=== PATIENT | male | born 1945 | race Two or more races ===

== ENCOUNTER 2018-07-10 15:38 | Inpatient (IN) | payer MEDICARE, OTHER ==
[~2018-07-10] VITALS: Ht 175.3 cm; Wt 71.2 kg
[2018-07-10] MEDS ORDERED: ALBU18HF2 IH (15:58)
[2018-07-10] MEDS ORDERED: HYDR25CA26 PO (15:58)
[2018-07-10] MEDS ORDERED: CITA10TA17 PO (15:58)
[2018-07-10] MEDS ORDERED: DOCU-141 PO (15:58)
[2018-07-10] MEDS ORDERED: BISA10SU8 RC (15:58)
[2018-07-10] MEDS ORDERED: OXYC5CAP18 PO (15:58)
[2018-07-10] MEDS ORDERED: IPRA3AMP23 IH (15:58)
[2018-07-10] MEDS ORDERED: HYDR28.32 TP (15:58)
[2018-07-10] MEDS ORDERED: BENZ1LOZ58 MM (15:58)
[2018-07-10] MEDS ORDERED: LOPE2CAP PO (15:58)
[2018-07-10] MEDS ORDERED: BISA5TAB10 PO (15:58)
[2018-07-10] MEDS ORDERED: ACET-868 PO (15:58)
[2018-07-10] MEDS ORDERED: ONDA4TAB5 PO (15:58)
[2018-07-10] MEDS ORDERED: LORA0.5T PO (15:58)
--- NOTE | 2018-07-10 16:00 | NUR ---
BIB PRIVATE EMT FROM [facility], ON & OFF LOWER ABDOMINAL PAIN. PT AAOX3, VSS. DENIES CP, SOB, DIZZINESS, ABD PAIN, N/V @ THIS TIME. NAD NOTED @ THIS TIME. AWAITING EVAL.
[2018-07-10 16:18] LABS: BASOPHILS % (AUTO) 0.8 % (0.0-2.0); EOSINOPHILS % (AUTO) 1.9 % (0.0-6.0); HEMATOCRIT 30 % (39-51); LYMPHOCYTES # (AUTO) 1.5 /CMM (0.8-4.8); LYMPHOCYTES % (AUTO) 33.9 % (20.0-44.0); MEAN CORPUSCULAR HEMOGLOBIN 31 PG (26.0-33.0); MEAN CORPUSCULAR HGB CONC 34 g/dl (31.0-36.0); MEAN CORPUSCULAR VOLUME 90 fL (80-96); MONOCYTES # (AUTO) 0.8 /CMM (0.1-1.30); MONOCYTES % (AUTO) 17.9 % (2.0-12.0); NEUTROPHILS % (AUTO) 45.5 % (43.0-81.0); PLATELET COUNT (AUTO) 157 /CMM (150-450); RDW COEFFICIENT OF VARIATION 13.2 (11.5-15.0); RED BLOOD CELL COUNT(AUTO) 3.28 MIL/uL (4.5-6.0); WHITE BLOOD COUNT (AUTO) 4.4 K/uL (4.3-11.0)
[2018-07-10 16:26] LABS: CALCIUM, SERUM 8.1 mg/dL (8.5-10.1); CARBON DIOXIDE 26 mmol/L (21-32); CHLORIDE 102 mmol/L (98-107); CREATININE 1.6 mg/dL (0.6-1.3); GLUCOSE 127 mg/dL (74-106); POTASSIUM 3.4 mmol/L (3.5-5.1); SODIUM SERUM 134 mmol/L (136-145); UREA NITROGEN, BLOOD 18 mg/dL (7-18)
[2018-07-10 16:30] LABS: INR 1.13 (0.85-1.15)
[2018-07-10 16:34] LABS: TROPONIN I < 0.017 ng/mL (0.00-0.056)
[2018-07-10 16:37] LABS: ALANINE AMINOTRANSFERASE 34 U/L (12-78); ALBUMIN 2.3 g/dL (3.4-5.0); ALKALINE PHOSPHATASE 184 U/L (46-116); ASPARTATE AMINOTRANSFERASE 59 U/L (15-37); BILIRUBIN,DIRECT 0.2 mg/dL (0.0-0.2); BILIRUBIN,TOTAL 0.5 mg/dL (0.2-1.0); LIPASE 611 U/L (73-393)
[2018-07-10 16:43] LABS: BAND % (MANUAL) 3 % (0.0-5.0); LYMPHOCYTES % (MANUAL) 26 % (16-48); MONOCYTES % (MANUAL) 6 % (0-11.0); NEUTROPHILS % (MANUAL) 65 (42-76)
[2018-07-10 16:49] LABS: SERUM AMMONIA 46 umol/L (11-32)
--- NOTE | 2018-07-10 18:26 | NUR ---
BED 202
[2018-07-10] MEDS ORDERED: IV NS 0.9% 1,000 ML IV PRN (18:30)
[2018-07-10] MEDS ORDERED: Z GUARD REMEDY 2 OZ OINT TP PRN (18:30)
[2018-07-10] MEDS ORDERED: MAGNESIUM HYDROXIDE 30 ML UDC PO PRN (18:30)
[2018-07-10] MEDS ORDERED: MORPHINE SULFATE INJ 2 MG/ML DISP.SYRIN IV PRN (18:30)
[2018-07-10] MEDS ORDERED: ACETAMINOPHEN 325 MG TABLET PO PRN (18:30)
[2018-07-10] MEDS ORDERED: MAG HYDROX/AL HYDROX/SIMETH 30 ML UDC PO PRN (18:30)
[2018-07-10] MEDS ORDERED: HYDROCODONE/APAP 5/325MG 1 EACH TABLET PO PRN (18:30)
[2018-07-10] MEDS ORDERED: ONDANSETRON HCL/PF 4 MG/2 ML VIAL IVP PRN (18:30)
[2018-07-10] MEDS ORDERED: LACTULOSE 10 G/15 ML UDC (PYXIS) PO ONE ×2 (18:30→21:00)
[2018-07-10] MEDS ORDERED: ZOLPIDEM TARTRATE 5 MG TABLET PO PRN (18:30)
[2018-07-10] MEDS ORDERED: MORPHINE SULFATE INJ 4 MG/ML DISP.SYRIN IV PRN (19:00)
--- NOTE | 2018-07-10 19:06 | NUR ---
PT STABLE, DENIES ABD PAIN, N/V/D, SOB, DIZZINESS, NAD NOTED @ THIS TIME.
[2018-07-10 19:15] VITALS: BP_SYST 152; BP_SYST 163; BP_DIAS 79
--- NOTE | 2018-07-10 19:15 | NUR ---
MS RN NOTES RECEIVED PT FROM ER, VIA [facility], ABLE TO WALK AN TRANSFER HIMSELF TO BED. PT IS A/O X 3, VERBALLY RESPONSIVE. NO DISTRESS, NO SOB NOTED AT THIS TIME. RESPIRATION IS EVEN AND UNLABORED. IV SITE ON RIGHT AC INTACT ANC PATENT, NO S/S OF INFILTRATION NOTED. BODY CHECK DONE. DENIES ANY PIN OR DISCOMFORT AT THIS TIME. ALL NEEDS ATTENDED AND MET. KEPT COMFORTABLE. CALL LIGHT WITHIN REACH. WILL CONT TO MONITOR.
[2018-07-10] MEDS: IV NS 0.9% 1,000 ML IV PRN (20:50)
--- NOTE | 2018-07-10 21:00 | NUR ---
PT ON NPO, SPOKE WITH KANWAL, NEWS REEL CAMERAMAN OK TO GIVE LACTULOSE MEDICATION WITH LITTLE SIPS OF WATER.
[2018-07-11] MEDS ORDERED: HYDROCORTISONE 1% CREAM 28.35 GM TUBE TP PRN (00:30)
[2018-07-11] MEDS ORDERED: ACETAMINOPHEN 325 MG TABLET PO PRN (00:30)
[2018-07-11] MEDS ORDERED: Medication Not On Formulary EA (Ondansetron Hcl (Zofran) 4 MG) PO PRN (00:30)
[2018-07-11] MEDS ORDERED: BISACODYL SUPP (10 MG) 10 MG/SUPP.RECT SUPP.RECT RC PRN (00:30)
[2018-07-11] MEDS ORDERED: Medication Not On Formulary EA (Ipratropium/Albuterol Sulfate (Duoneb 2.5-0.5 Mg/3 Ml So IH PRN (00:30)
[2018-07-11] MEDS ORDERED: LOPERAMIDE HCL (2 MG CAP) 2 MG CAPSULE PO PRN (00:30)
[2018-07-11 06:26] LABS: SERUM AMMONIA 38 umol/L (11-32)
[2018-07-11 06:28] LABS: CALCIUM, SERUM 8.3 mg/dL (8.5-10.1); CARBON DIOXIDE 25 mmol/L (21-32); CHLORIDE 106 mmol/L (98-107); CREATININE 1.4 mg/dL (0.6-1.3); GLUCOSE 86 mg/dL (74-106); PHOSPHORUS 3.3 mg/dL (2.5-4.9); POTASSIUM 3.5 mmol/L (3.5-5.1); SODIUM SERUM 139 mmol/L (136-145); UREA NITROGEN, BLOOD 15 mg/dL (7-18)
[2018-07-11 06:31] LABS: CHOLESTEROL 111 mg/dL (<200); HDL CHOLESTEROL 21 mg/dL (40-60); LDL 76 mg/dL (0-99); TRIGLYCERIDES 92 mg/dL (30-150)
--- NOTE | 2018-07-11 06:35 | NUR ---
MS RN NOTES PT IN BED, RESTING COMFORTABLY AT THIS TIME, AROUSES EASILY. A/O X 3, VERBALLY RESPONSIVE. NO DISTRESS, NO SOB NOTED AT THIS TIME. RESPIRATION IS EVEN AND UNLABORED. IV SITE ON RIGHT AC INTACT AND PATENT, NO S/S OF INFILTRATION NOTED. IVF INFUSING WELL. DENIES ANY PIN OR DISCOMFORT AT THIS TIME. PT ON NPO, VERBALIZED UNDERSTANDING REGARDING PLAN OF CARE. AMBULATORY. ALL NEEDS ATTENDED AND MET. KEPT COMFORTABLE. CALL LIGHT WITHIN REACH. WILLL ENDORSE TO NEXT SHIFT ACCORDINGLY FOR MIGUEL.
[2018-07-11] MEDS ORDERED: MENTHOL/CETYLPYRD (CEPACOL) 1 LOZ LOZENGE MM PRN (07:30)
[2018-07-11] MEDS ORDERED: IPRATROPIUM NEB FS 0.5 MG/2.5 ML AMPUL.NEB NEB PRN (07:30)
[2018-07-11] MEDS ORDERED: ALBUTEROL FS 2.5 MG/0.5 ML VIAL.NEB NEB PRN (07:30)
[2018-07-11] MEDS: PANTOPRAZOLE 40 MG TABLET.DR PO SCH (07:30)
[2018-07-11 07:58] LABS: BASOPHILS % (AUTO) 0.5 % (0.0-2.0); EOSINOPHILS % (AUTO) 2.2 % (0.0-6.0); HEMATOCRIT 30 % (39-51); LYMPHOCYTES # (AUTO) 1.8 /CMM (0.8-4.8); LYMPHOCYTES % (AUTO) 34.3 % (20.0-44.0); MEAN CORPUSCULAR HEMOGLOBIN 31 PG (26.0-33.0); MEAN CORPUSCULAR HGB CONC 34 g/dl (31.0-36.0); MEAN CORPUSCULAR VOLUME 93 fL (80-96); MONOCYTES # (AUTO) 0.8 /CMM (0.1-1.30); MONOCYTES % (AUTO) 15.7 % (2.0-12.0); NEUTROPHILS # (AUTO) 2.4 /CMM (1.8-8.9); NEUTROPHILS % (AUTO) 47.3 % (43.0-81.0); PLATELET COUNT (AUTO) 158 /CMM (150-450); RDW COEFFICIENT OF VARIATION 14.1 (11.5-15.0); RED BLOOD CELL COUNT(AUTO) 3.21 MIL/uL (4.5-6.0); WHITE BLOOD COUNT (AUTO) 5.2 K/uL (4.3-11.0)
[2018-07-11 08:00] VITALS: BP 120/67
--- NOTE | 2018-07-11 08:00 | NUR ---
MS RN NOTES PT IN BED, RESTING COMFORTABLY AT THIS TIME, AROUSES EASILY. A/O X 3, VERBALLY RESPONSIVE. NO DISTRESS, NO SOB NOTED AT THIS TIME. RESPIRATION IS EVEN AND UNLABORED. IV SITE ON RIGHT AC INTACT AND PATENT, WITH BRP.NO S/S OF INFILTRATION NOTED. IVF INFUSING WELL. DENIES ANY PAIN OR DISCOMFORT AT THIS TIME. PT ON NPO, VERBALIZED UNDERSTANDING REGARDING PLAN OF CARE. AMBULATORY.NEEDS ATTENDED AND MET. KEPT COMFORTABLE. CALL LIGHT WITHIN REACH.
[2018-07-11] MEDS: BISACODYL (5 MG) 5 MG TABLET.DR PO SCH (08:25)
[2018-07-11] MEDS: CITALOPRAM HYDROBROMIDE 10 MG TABLET PO SCH (08:25)
[2018-07-11] MEDS: DOCUSATE SODIUM 100 MG CAPSULE PO SCH ×2 (08:25→18:19)
[2018-07-11] MEDS ORDERED: LACTULOSE 10 G/15 ML UDC (PYXIS) PO ONE (10:30)
[2018-07-11 11:08] LABS: BAND % (MANUAL) 5 % (0.0-5.0); EOSINOPHILS % (MANUAL) 1 % (0-4); LYMPHOCYTES % (MANUAL) 31 % (16-48); MONOCYTES % (MANUAL) 6 % (0-11.0); NEUTROPHILS % (MANUAL) 57 (42-76)
[2018-07-11] MEDS: IV NS 0.9% 1,000 ML IV PRN (13:26)
[2018-07-11 16:00] VITALS: BP 129/72
--- NOTE | 2018-07-11 19:00 | NUR ---
MS RN OPENING NOTE RECEIVE PATIENT AWAKE IN BED, A/O X 3, NO SOB OR DISTRESS NOTED, CALL LIGHT WITHIN REACH. SAFETY MEASURES IMPLEMENTED. WILL CONTINUE TO MONITOR THROUGHOUT SHIFT.
[2018-07-11 20:00] VITALS: BP 131/71
[2018-07-11] MEDS: LORAZEPAM 0.5 MG TABLET PO SCH (21:10)
[2018-07-11] MEDS: hydrOXYzine PAMOATE 25 MG CAPSULE PO SCH (21:10)
[2018-07-12] MEDS: IV NS 0.9% 1,000 ML IV PRN ×2 (01:01→15:59)
[2018-07-12 06:28] LABS: BASOPHILS % (AUTO) 0.6 % (0.0-2.0); EOSINOPHILS % (AUTO) 4.1 % (0.0-6.0); HEMATOCRIT 28 % (39-51); HEMOGLOBIN 8.9 g/dL (13.5-17.5); LYMPHOCYTES # (AUTO) 1.8 /CMM (0.8-4.8); LYMPHOCYTES % (AUTO) 38.2 % (20.0-44.0); MEAN CORPUSCULAR HEMOGLOBIN 30 PG (26.0-33.0); MEAN CORPUSCULAR HGB CONC 32 g/dl (31.0-36.0); MEAN CORPUSCULAR VOLUME 94 fL (80-96); MONOCYTES # (AUTO) 0.7 /CMM (0.1-1.30); MONOCYTES % (AUTO) 14.1 % (2.0-12.0); PLATELET COUNT (AUTO) 160 /CMM (150-450); RDW COEFFICIENT OF VARIATION 14.3 (11.5-15.0); RED BLOOD CELL COUNT(AUTO) 2.96 MIL/uL (4.5-6.0); WHITE BLOOD COUNT (AUTO) 4.8 K/uL (4.3-11.0)
--- NOTE | 2018-07-12 06:38 | NUR ---
MS RN CLOSING NOTES ASLEEP AND EASILY AWAKEN, STABLE, TOLERATING ROOM AIR 98%. NOT IN DISTRESS. RESPIRATION EVEN AND UNLABORED. KEPT CLEAN AND DRY AND COMFORTABLE, ALL NURSING CARE RENDERED. NEEDS ATTENDED AND ANTICIPATED. ON LOW BED AT ALL TIMES TO ENSURE SAFETY. SAFE HAZARD FREE ENVIRONMENT PROVIDED. CALL LIGHT WITHIN EASY TO REACH. WILL ENDORSE NEXT SHIFT CONTINUITY OF CARE.
[2018-07-12 06:40] LABS: CALCIUM, SERUM 7.6 mg/dL (8.5-10.1); CARBON DIOXIDE 23 mmol/L (21-32); CHLORIDE 108 mmol/L (98-107); CREATININE 1.4 mg/dL (0.6-1.3); GLUCOSE 89 mg/dL (74-106); LIPASE 625 U/L (73-393); POTASSIUM 3.7 mmol/L (3.5-5.1); SODIUM SERUM 139 mmol/L (136-145); UREA NITROGEN, BLOOD 16 mg/dL (7-18)
[2018-07-12 06:41] LABS: SERUM AMMONIA 66 umol/L (11-32)
--- NOTE | 2018-07-12 07:30 | NUR ---
RN MS NOTES PT IN BED, AWAKE, ALERT AND ORIENTED, DENIES PAIN, NOT IN DISTRESS, IV FLUIDS INFUSING WELL, CALL LIGHT WITHIN REACH, KEPT WARM AND COMFORTABLE IN BED.
[2018-07-12 08:00] VITALS: BP 118/64
[2018-07-12] MEDS ORDERED: LACTULOSE 10 G/15 ML UDC (PYXIS) PO ONE (09:00)
[2018-07-12] MEDS: PANTOPRAZOLE 40 MG TABLET.DR PO SCH (09:09)
[2018-07-12] MEDS: DOCUSATE SODIUM 100 MG CAPSULE PO SCH ×2 (09:10→16:26)
[2018-07-12] MEDS: BISACODYL (5 MG) 5 MG TABLET.DR PO SCH (09:10)
[2018-07-12] MEDS: CITALOPRAM HYDROBROMIDE 10 MG TABLET PO SCH (09:10)
[2018-07-12] MEDS: CALCIUM CARBONATE (1250) 500 MG TABLET PO SCH (09:12)
--- NOTE | 2018-07-12 11:18 | NUR ---
RN MS NOTES PT RESTING COMFORTABLY IN BED, NOT IN PAIN OR DISTRESS, PT SEEN BY [employer] SUPERVISING [employer]AIL[employer], PLAN OF CARE DISCUSSED WITH PT, VERBALIZED UNDERSTANDING, CALL LIGHT WITHIN REACH, NEEDS ATTENDED.
[2018-07-12] MEDS: MUPIROCIN OINT 2% 22 GM TUBE SCH ×2 (13:22→21:21)
[2018-07-12 16:00] VITALS: BP 142/76
--- NOTE | 2018-07-12 18:33 | NUR ---
RN MS NOTES PT IN BED, ASLEEP, EASY TO AROUSE, ALERT AND ORIENTED, NOT IN PAIN OR DISTRESS, TOLERATING CURRENT DIET WELL, IV FLUIDS INFUSING WELL, PM CARE PROVIDED, ALL NEEDS ATTENDED.
--- NOTE | 2018-07-12 19:30 | NUR ---
RN NOTES RECEIVED PATIENT SITTING UP IN BED AWAKE. AO X 3, ABLE TO MAKE NEEDS KNOWN. NO ACUTE DISTRESS NOTED. DENIES PAIN AT THIS TIME. IV SITE PATENT, INTACT; IVF INFUSING ORDERED. CONTACT ISOLATION FOR MRSA NARES MAINTAINED. SAFETY REMINDERS GIVEN. ON LOW BED WITH BILATERAL UPPER SIDE RAILS UP. CALL [place] WITHIN EASY REACH. WILL CONTINUE TO MONITOR.
[2018-07-12 19:53] VITALS: BP 151/76
[2018-07-12 20:00] VITALS: BP 151/76
[2018-07-12] MEDS: hydrOXYzine PAMOATE 25 MG CAPSULE PO SCH (21:20)
[2018-07-12] MEDS: LORAZEPAM 0.5 MG TABLET PO SCH (21:20)
[2018-07-13] MEDS: IV NS 0.9% 1,000 ML IV PRN (05:48)
--- NOTE | 2018-07-13 06:16 | NUR ---
RN NOTES PATIENT ASLEEP, EASILY AROUSABLE. RESPIRATIONS EVEN. NO SIGNS OF PAIN NOTED. DUE MEDS GIVEN WITH NO ASE NOTED. NEEDS ATTENDED. KEPT CLEAN AND DRY. WILL GIVE REPORT TO DAY SHIFT FOR CONTINUITY OF CARE.
[2018-07-13 07:22] LABS: SERUM AMMONIA 67 umol/L (11-32)
[2018-07-13 07:24] LABS: CALCIUM, SERUM 7.7 mg/dL (8.5-10.1); CARBON DIOXIDE 23 mmol/L (21-32); CHLORIDE 111 mmol/L (98-107); CREATININE 1.4 mg/dL (0.6-1.3); GLUCOSE 92 mg/dL (74-106); LIPASE 836 U/L (73-393); POTASSIUM 3.5 mmol/L (3.5-5.1); SODIUM SERUM 142 mmol/L (136-145); UREA NITROGEN, BLOOD 16 mg/dL (7-18)
--- NOTE | 2018-07-13 07:33 | NUR ---
MS RN OPENING NOTES RECEIVED PT FROM [facility] NURSE IN STABLE CONDITION. PT IS A/O X3. NO SOB OR ACUTE SIGNS OF DISTRESS NOTED. BREATHING IS EVEN AND UNLABORED. PT ON RA AND SATING WELL. IV TO RIGHT AC NOTED TO BE PATENT AND INTACT. NO REDNESS OR SIGNS OF INFILTRATION NOTED. BED IN LOW LOCKED POSITION, SIDE RAILS UP X2 CALL LIGHT WITHIN REACH, BED ALARM ON. CONTACT ISOLATION OBSERVED. WILL CONTINUE TO MONITOR
[2018-07-13 07:58] LABS: BASOPHILS # (AUTO) 0.1 /CMM (0.0-0.2); BASOPHILS % (AUTO) 0.9 % (0.0-2.0); EOSINOPHILS % (AUTO) 4.1 % (0.0-6.0); HEMATOCRIT 26 % (39-51); HEMOGLOBIN 8.9 g/dL (13.5-17.5); LYMPHOCYTES # (AUTO) 2.2 /CMM (0.8-4.8); LYMPHOCYTES % (AUTO) 38.4 % (20.0-44.0); MEAN CORPUSCULAR HEMOGLOBIN 31 PG (26.0-33.0); MEAN CORPUSCULAR HGB CONC 34 g/dl (31.0-36.0); MEAN CORPUSCULAR VOLUME 91 fL (80-96); MONOCYTES # (AUTO) 0.7 /CMM (0.1-1.30); MONOCYTES % (AUTO) 13.2 % (2.0-12.0); NEUTROPHILS # (AUTO) 2.4 /CMM (1.8-8.9); NEUTROPHILS % (AUTO) 43.4 % (43.0-81.0); PLATELET COUNT (AUTO) 155 /CMM (150-450); RDW COEFFICIENT OF VARIATION 13.4 (11.5-15.0); RED BLOOD CELL COUNT(AUTO) 2.83 MIL/uL (4.5-6.0); WHITE BLOOD COUNT (AUTO) 5.6 K/uL (4.3-11.0)
[2018-07-13 08:00] VITALS: BP 126/65
[2018-07-13] MEDS: BISACODYL (5 MG) 5 MG TABLET.DR PO SCH (08:59)
[2018-07-13] MEDS: PANTOPRAZOLE 40 MG TABLET.DR PO SCH (08:59)
[2018-07-13] MEDS: CITALOPRAM HYDROBROMIDE 10 MG TABLET PO SCH (08:59)
[2018-07-13] MEDS: CALCIUM CARBONATE (1250) 500 MG TABLET PO SCH (08:59)
[2018-07-13] MEDS: DOCUSATE SODIUM 100 MG CAPSULE PO SCH (08:59)
[2018-07-13] MEDS: MUPIROCIN OINT 2% 22 GM TUBE SCH (09:02)
[2018-07-13] MEDS ORDERED: LACTULOSE 10 G/15 ML UDC (PYXIS) PO PRN (10:00)
[2018-07-13] MEDS ORDERED: LACT10SO PO (10:07)
[2018-07-13 16:00] VITALS: BP 151/76
--- NOTE | 2018-07-13 17:07 | NUR ---
MS GAS APPLIANCE ADJUSTER NOTES PT WAS DISCHARGED FROM FACILITY IN STABLE CONDITION. ALL NEEDS WERE NET THROUGHOUT SHIFT AND ORDERS CARRIED OUT ACCORDINGLY ALL DUE MEDS GIVEN. PRN CARE RENDERED ORDERED. IV WAS SUCCESSFULLY REMOVED WITH NO COMPLICATIONS. REPORT CALLED AND GIVEN TO MYRANDA AT PT'S FACILITY. HE WAS SAFELY TRANSFERRED FROM HOSPITAL BED TO [facility] AND LEFT VIA AMBULANCE TRANSPORT WITH ALL BELONGINGS
== END 2018-07-13 17:09 | DRG 438 ==
LOC: ER 15:39 → MEDSG2 18:55
PROVIDERS: ADMIT Nurse Practitioner Acute Care; ATTEND Nurse Practitioner Acute Care
DX: K85.90 Acute pancreatitis without necrosis or infection, unspecified (principal); K72.00 Acute and subacute hepatic failure without coma; N17.0 Acute kidney failure with tubular necrosis; E44.0 Moderate protein-calorie malnutrition; E87.1 Hypo-osmolality and hyponatremia; K70.31 Alcoholic cirrhosis of liver with ascites; D63.8 Anemia in other chronic diseases classified elsewhere; E83.51 Hypocalcemia; E87.6 Hypokalemia; I12.9 Hypertensive chronic kidney disease with stage 1 through stage 4 chronic kidney disease, or unspecified chronic kidney disease; J45.909 Unspecified asthma, uncomplicated; N18.9 Chronic kidney disease, unspecified; Z66 Do not resuscitate; Z85.05 Personal history of malignant neoplasm of liver; R53.1 Weakness; R73.9 Hyperglycemia, unspecified; R74.0 Nonspecific elevation of levels of transaminase and lactic acid dehydrogenase [LDH]; E88.09 Other disorders of plasma-protein metabolism, not elsewhere classified; Z68.23 Body mass index [BMI] 23.0-23.9, adult; K72.10 Chronic hepatic failure without coma
CPT/HCPCS: 36415; 76705-TC; 80048-TC; 80061-TC; 80076-TC; 82140-TC; 83690-TC; 83735-TC; 84100-TC; 84484-TC; 85025-TC; 85730-TC; 87081-TC; A4606; J7030; Q0177; Z7610